=== PATIENT | female | born 1970 | race Caucasian/White ===

== ENCOUNTER 2024-08-02 17:45 | Inpatient (IN) | payer MEDICAID ==
[~2024-08-02] VITALS: Ht 163.8 cm; Wt 123.0 kg
[2024-08-02 19:25] LABS: BASOPHILS % (AUTO) 0.4 % (0-1); EOSINOPHILS # (AUTO) 0.2 X10'3 (0-0.9); EOSINOPHILS % (AUTO) 1.8 % (0-6); HEMATOCRIT 40.1 % (35.0-45.0); HEMOGLOBIN 14.1 g/dl (12.0-16.0); LYMPHOCYTES # (AUTO) 1.5 X10'3 (1.1-4.8); LYMPHOCYTES % (AUTO) 16.4 % (21-51); MEAN CORPUSCULAR HEMOGLOBIN 31.1 PG (27.0-31.0); MEAN CORPUSCULAR HGB CONC 35.1 g/dL (33.0-36.5); MEAN CORPUSCULAR VOLUME 88.7 FL (78-98); MEAN PLATELET VOLUME 9.5 FL (7.4-10.4); MONOCYTES % (AUTO) 11.1 % (2-12); NEUTROPHILS # (AUTO) 6.6 X10'3 (1.8-7.7); NEUTROPHILS % (AUTO) 70.3 % (42-75); PLATELET COUNT 294 X10'3 (140-440); RED BLOOD COUNT 4.52 X10'6 (4.20-5.60); RED CELL DISTRIBUTION WIDTH 14.1 % (11.5-14.5); WHITE BLOOD COUNT 9.3 X10'3 (4.5-11.0)
[2024-08-02 19:31] LABS: ALANINE AMINOTRANSFERASE 334 U/L (12-78); ALBUMIN 3.4 G/DL (3.4-5.0); ALBUMIN/GLOBULIN RATIO 0.9 (1.1-1.5); ALKALINE PHOSPHATASE 105 IU/L (46-116); ANION GAP 14 (8-16); ASPARTATE AMINO TRANSFERASE 94 U/L (10-37); BILIRUBIN,TOTAL 1.3 MG/DL (0.1-1.0); BLOOD UREA NITROGEN 27 MG/DL (7-18); BUN/CREATININE RATIO 14.1 (10.0-20.0); CALCIUM 8.3 MG/DL (8.5-10.1); CHLORIDE 90 MMOL/L (99-107); CREATININE 1.92 MG/DL (0.40-0.90); GLUCOSE 127 MG/DL (70-104); LIPASE 52 U/L (16-77); SODIUM 133 MMOL/L (135-145); TOTAL CARBON DIOXIDE 29.2 MMOL/L (24-32); TOTAL PROTEIN 7.3 G/DL (6.4-8.2); eCRCL 30 ML/MIN; eGFR 27 ML/MIN
[2024-08-02 19:55] LABS: POTASSIUM 2.5 MMOL/L (3.5-5.1)
[2024-08-02] MEDS ORDERED: magnesium Cl slow-release 64mg tablet PO PRN (19:55)
[2024-08-02] MEDS ORDERED: magnesium sulf-water 4G/100mL 100 ML IV PRN (19:55)
[2024-08-02] MEDS ORDERED: acetaminophen 325mg tablet PO PRN (19:55)
[2024-08-02] MEDS ORDERED: magnesium sulf-water 2g/50mL 50 ML IV PRN (19:55)
[2024-08-02] MEDS ORDERED: potassium Cl 20 mEq SR tablet PO PRN ×2 (19:55)
[2024-08-02] MEDS ORDERED: morphine 2 MG/ML inj. syringe IV PRN ×2 (19:55→23:55)
[2024-08-02] MEDS ORDERED: magnesium hydroxide 30ml (MOM) UD suspension PO PRN (19:55)
[2024-08-02] MEDS ORDERED: mag hydrox/Alum hydrox/simeth 30ml oral suspension PO PRN (19:55)
[2024-08-02] MEDS: K and/or MAG REPLACEMENT MC SCH (20:00)
[2024-08-02 20:24] LABS: MAGNESIUM 2.7 MG/DL (1.5-2.4)
[2024-08-02] MEDS: potassium Cl 40MEQ/1/2NS 520ml 520 ML IV PRN (20:29)
[2024-08-02] MEDS: normal saline 1000ml 1,000 ML IV SCH (20:37)
[2024-08-02] MEDS: ringers solution, lacted 1,000 ML IV ONE (20:55)
[2024-08-02] MEDS ORDERED: famotidine/PF 10 mg/ml inj IV ONE (23:55)
[2024-08-02] MEDS ORDERED: proCHLORperazine 10 MG/2 ml inj IV PRN (23:55)
[2024-08-02] MEDS ORDERED: hydrALAZINE 20mg/ml inj. IV PRN (23:55)
[2024-08-02] MEDS ORDERED: labetalol 20mg/4ml (5mg/ml) syringe IV PRN (23:55)
[2024-08-02] MEDS ORDERED: meperidine/PF 25mg/ml syringe IV PRN ×2 (23:55)
[2024-08-02] MEDS ORDERED: ondansetron/PF 4mg/2ml inj IV PRN (23:55)
[2024-08-03] VITALS (12 sets, daily range): BP systolic 110–179; BP diastolic 62–98; PULSE 74–89; RESP 13–19; TEMP 98.2–98.8; O2SAT 93–98
[2024-08-03] MEDS ORDERED: fentaNYL/PF 50MCG/1 ML 2ML syringe ONE ×2 (00:01→01:31)
[2024-08-03] MEDS ORDERED: midazolam 1 mg/ML 2ml injection ONE (00:02)
[2024-08-03] MEDS ORDERED: sevoflurane 250ml liquid IH ONE (00:08)
[2024-08-03] MEDS: BUPIVAcaine 2.5mg/ml inj 50ml vial (contains preservative) SQ ONE (00:57)
[2024-08-03] MEDS ORDERED: BUPIVAcaine 2.5mg/ml inj 50ml vial (contains preservative) ONE (01:10)
[2024-08-03] MEDS ORDERED: LIDOcaine 2% (20mg/ml) 5ml vial ONE (01:29)
[2024-08-03] MEDS ORDERED: neostigmine methylsulfate 1 MG/ML 10ml vial ONE (01:29)
[2024-08-03] MEDS ORDERED: ceFOXitin 1000 MG inj ONE ×2 (01:29)
[2024-08-03] MEDS ORDERED: propofol inj 20 ML IV ONE (01:29)
[2024-08-03] MEDS ORDERED: rocuronium 10mg/ml inj IV ONE (01:29)
[2024-08-03] MEDS ORDERED: ondansetron/PF 4mg/2ml inj ONE (01:31)
[2024-08-03] MEDS ORDERED: dexamethasone sod phosphate 4mg/ml inj. ONE (01:31)
[2024-08-03] MEDS ORDERED: sugammadex 200mg/2ml injection IV ONE (01:57)
[2024-08-03] MEDS: meperidine/PF 25mg/ml syringe IV PRN (02:07)
[2024-08-03] MEDS: acetaminophen 1,000mg/100ml IV 100 ML IV ONE (02:07)
[2024-08-03] MEDS: ondansetron/PF 4mg/2ml inj IV PRN (02:08)
[2024-08-03] MEDS: morphine 4 MG/ML inj SYRINge IV PRN (02:35)
[2024-08-03] MEDS ORDERED: SERT100T PO (04:59)
[2024-08-03 05:21] LABS: BASOPHILS % (AUTO) 0.5 % (0-1); EOSINOPHILS # (AUTO) 0.1 X10'3 (0-0.9); EOSINOPHILS % (AUTO) 0.7 % (0-6); HEMATOCRIT 35.7 % (35.0-45.0); HEMOGLOBIN 12.5 g/dl (12.0-16.0); LYMPHOCYTES # (AUTO) 0.7 X10'3 (1.1-4.8); LYMPHOCYTES % (AUTO) 8.2 % (21-51); MEAN CORPUSCULAR HEMOGLOBIN 31.2 PG (27.0-31.0); MEAN CORPUSCULAR HGB CONC 34.9 g/dL (33.0-36.5); MEAN CORPUSCULAR VOLUME 89.3 FL (78-98); MEAN PLATELET VOLUME 8.8 FL (7.4-10.4); MONOCYTES # (AUTO) 0.5 X10'3 (0-0.9); MONOCYTES % (AUTO) 5.9 % (2-12); NEUTROPHILS # (AUTO) 7.5 X10'3 (1.8-7.7); NEUTROPHILS % (AUTO) 84.7 % (42-75); PLATELET COUNT 228 X10'3 (140-440); RED CELL DISTRIBUTION WIDTH 14.1 % (11.5-14.5); WHITE BLOOD COUNT 8.8 X10'3 (4.5-11.0)
[2024-08-03 05:37] LABS: ALANINE AMINOTRANSFERASE 272 U/L (12-78); ALBUMIN 2.9 G/DL (3.4-5.0); ALBUMIN/GLOBULIN RATIO 0.9 (1.1-1.5); ALKALINE PHOSPHATASE 87 IU/L (46-116); ANION GAP 9 (8-16); ASPARTATE AMINO TRANSFERASE 78 U/L (10-37); BILIRUBIN,TOTAL 1.3 MG/DL (0.1-1.0); BLOOD UREA NITROGEN 24 MG/DL (7-18); CALCIUM 7.4 MG/DL (8.5-10.1); CHLORIDE 98 MMOL/L (99-107); CREATININE 1.71 MG/DL (0.40-0.90); GLUCOSE 149 MG/DL (70-104); POTASSIUM 3.6 MMOL/L (3.5-5.1); SODIUM 132 MMOL/L (135-145); TOTAL CARBON DIOXIDE 25.5 MMOL/L (24-32); TOTAL PROTEIN 6.1 G/DL (6.4-8.2); eCRCL 34 ML/MIN; eGFR 31 ML/MIN
[2024-08-03] MEDS: ringers solution, lacted 1,000 ML IV SCH (10:02)
[2024-08-03] MEDS: pantoprazole 40 MG vial IV SCH (13:36)
[2024-08-03] MEDS: morphine 2 MG/ML inj. syringe IV PRN (14:12)
[2024-08-03] MEDS: enoxaparin 40mg/0.4ml syringe SUBCUT SCH (20:53)
[2024-08-04] VITALS (7 sets, daily range): BP systolic 119–140; BP diastolic 60–78; PULSE 79–94; RESP 14–18; TEMP 97.3–98.8; O2SAT 80–100
[2024-08-04 05:42] LABS: BASOPHILS % (AUTO) 0.3 % (0-1); EOSINOPHILS # (AUTO) 0.1 X10'3 (0-0.9); EOSINOPHILS % (AUTO) 1.9 % (0-6); HEMATOCRIT 30.3 % (35.0-45.0); HEMOGLOBIN 10.5 g/dl (12.0-16.0); LYMPHOCYTES # (AUTO) 1.6 X10'3 (1.1-4.8); LYMPHOCYTES % (AUTO) 21.5 % (21-51); MEAN CORPUSCULAR HEMOGLOBIN 31.2 PG (27.0-31.0); MEAN CORPUSCULAR HGB CONC 34.7 g/dL (33.0-36.5); MEAN CORPUSCULAR VOLUME 89.9 FL (78-98); MEAN PLATELET VOLUME 9.1 FL (7.4-10.4); MONOCYTES # (AUTO) 0.8 X10'3 (0-0.9); MONOCYTES % (AUTO) 10.9 % (2-12); NEUTROPHILS # (AUTO) 4.9 X10'3 (1.8-7.7); NEUTROPHILS % (AUTO) 65.4 % (42-75); PLATELET COUNT 198 X10'3 (140-440); RED BLOOD COUNT 3.37 X10'6 (4.20-5.60); RED CELL DISTRIBUTION WIDTH 14.3 % (11.5-14.5); WHITE BLOOD COUNT 7.5 X10'3 (4.5-11.0)
[2024-08-04 06:02] LABS: ALANINE AMINOTRANSFERASE 186 U/L (12-78); ALBUMIN 2.7 G/DL (3.4-5.0); ALBUMIN/GLOBULIN RATIO 0.8 (1.1-1.5); ALKALINE PHOSPHATASE 73 IU/L (46-116); ANION GAP 10 (8-16); ASPARTATE AMINO TRANSFERASE 43 U/L (10-37); BILIRUBIN,TOTAL 0.8 MG/DL (0.1-1.0); BLOOD UREA NITROGEN 15 MG/DL (7-18); BUN/CREATININE RATIO 14.2 (10.0-20.0); CALCIUM 7.4 MG/DL (8.5-10.1); CHLORIDE 103 MMOL/L (99-107); CREATININE 1.06 MG/DL (0.40-0.90); GLUCOSE 103 MG/DL (70-104); POTASSIUM 3.1 MMOL/L (3.5-5.1); SODIUM 139 MMOL/L (135-145); TOTAL CARBON DIOXIDE 26.1 MMOL/L (24-32); TOTAL PROTEIN 5.9 G/DL (6.4-8.2); eCRCL 54 ML/MIN; eGFR 54 ML/MIN
[2024-08-05 06:12] LABS: BASOPHILS % (AUTO) 0.9 % (0-1); EOSINOPHILS # (AUTO) 0.2 X10'3 (0-0.9); HEMATOCRIT 29.8 % (35.0-45.0); HEMOGLOBIN 10.3 g/dl (12.0-16.0); LYMPHOCYTES # (AUTO) 1.6 X10'3 (1.1-4.8); LYMPHOCYTES % (AUTO) 32.1 % (21-51); MEAN CORPUSCULAR HGB CONC 34.4 g/dL (33.0-36.5); MEAN CORPUSCULAR VOLUME 90.1 FL (78-98); MEAN PLATELET VOLUME 9.4 FL (7.4-10.4); MONOCYTES # (AUTO) 0.5 X10'3 (0-0.9); MONOCYTES % (AUTO) 10.3 % (2-12); NEUTROPHILS # (AUTO) 2.6 X10'3 (1.8-7.7); NEUTROPHILS % (AUTO) 52.7 % (42-75); PLATELET COUNT 171 X10'3 (140-440); RED BLOOD COUNT 3.31 X10'6 (4.20-5.60); RED CELL DISTRIBUTION WIDTH 14.3 % (11.5-14.5)
[2024-08-05 06:35] VITALS: BP 131/77; PULSE 86; RESP 18; TEMP 98.6; O2SAT 95
[2024-08-05 06:37] LABS: ALANINE AMINOTRANSFERASE 132 U/L (12-78); ALBUMIN 2.5 G/DL (3.4-5.0); ALBUMIN/GLOBULIN RATIO 0.8 (1.1-1.5); ALKALINE PHOSPHATASE 68 IU/L (46-116); ANION GAP 11 (8-16); ASPARTATE AMINO TRANSFERASE 32 U/L (10-37); BILIRUBIN,TOTAL 0.7 MG/DL (0.1-1.0); BLOOD UREA NITROGEN 10 MG/DL (7-18); BUN/CREATININE RATIO 10.9 (10.0-20.0); CALCIUM 7.7 MG/DL (8.5-10.1); CHLORIDE 107 MMOL/L (99-107); CREATININE 0.92 MG/DL (0.40-0.90); GLUCOSE 76 MG/DL (70-104); POTASSIUM 3.2 MMOL/L (3.5-5.1); SODIUM 141 MMOL/L (135-145); TOTAL CARBON DIOXIDE 23.5 MMOL/L (24-32); TOTAL PROTEIN 5.7 G/DL (6.4-8.2); eCRCL 62 ML/MIN; eGFR 64 ML/MIN
[2024-08-05 08:00] VITALS: RESP 16
[2024-08-05 10:00] VITALS: BP 118/67; PULSE 80; RESP 17; TEMP 97.9; O2SAT 96
[2024-08-05 19:00] VITALS: BP 131/80; PULSE 89; RESP 20; TEMP 97.8; O2SAT 100
[2024-08-05 22:00] VITALS: BP 128/70; PULSE 97; RESP 16; TEMP 98.1; O2SAT 99
[2024-08-06 06:00] VITALS: BP 125/78; PULSE 84; RESP 18; TEMP 98.3; O2SAT 97
[2024-08-06 06:04] LABS: BASOPHILS % (AUTO) 0.6 % (0-1); EOSINOPHILS # (AUTO) 0.2 X10'3 (0-0.9); EOSINOPHILS % (AUTO) 4.3 % (0-6); HEMATOCRIT 29.7 % (35.0-45.0); HEMOGLOBIN 10.5 g/dl (12.0-16.0); LYMPHOCYTES # (AUTO) 1.6 X10'3 (1.1-4.8); LYMPHOCYTES % (AUTO) 36.7 % (21-51); MEAN CORPUSCULAR HEMOGLOBIN 31.5 PG (27.0-31.0); MEAN CORPUSCULAR HGB CONC 35.4 g/dL (33.0-36.5); MEAN CORPUSCULAR VOLUME 89.1 FL (78-98); MEAN PLATELET VOLUME 9.5 FL (7.4-10.4); MONOCYTES # (AUTO) 0.5 X10'3 (0-0.9); MONOCYTES % (AUTO) 11.6 % (2-12); NEUTROPHILS # (AUTO) 2.1 X10'3 (1.8-7.7); NEUTROPHILS % (AUTO) 46.8 % (42-75); PLATELET COUNT 190 X10'3 (140-440); RED BLOOD COUNT 3.34 X10'6 (4.20-5.60); RED CELL DISTRIBUTION WIDTH 14.1 % (11.5-14.5); WHITE BLOOD COUNT 4.5 X10'3 (4.5-11.0)
[2024-08-06 06:27] LABS: ALANINE AMINOTRANSFERASE 97 U/L (12-78); ALBUMIN 2.4 G/DL (3.4-5.0); ALBUMIN/GLOBULIN RATIO 0.7 (1.1-1.5); ALKALINE PHOSPHATASE 66 IU/L (46-116); ANION GAP 8 (8-16); ASPARTATE AMINO TRANSFERASE 22 U/L (10-37); BILIRUBIN,TOTAL 0.6 MG/DL (0.1-1.0); BLOOD UREA NITROGEN 5 MG/DL (7-18); BUN/CREATININE RATIO 5.5 (10.0-20.0); CALCIUM 7.8 MG/DL (8.5-10.1); CHLORIDE 108 MMOL/L (99-107); CREATININE 0.91 MG/DL (0.40-0.90); GLUCOSE 105 MG/DL (70-104); POTASSIUM 3.2 MMOL/L (3.5-5.1); SODIUM 140 MMOL/L (135-145); TOTAL CARBON DIOXIDE 24.3 MMOL/L (24-32); TOTAL PROTEIN 5.8 G/DL (6.4-8.2); eCRCL 63 ML/MIN; eGFR 65 ML/MIN
[2024-08-06] MEDS ORDERED: potassium Cl 20 mEq SR tablet PO PRN (08:10)
[2024-08-06] MEDS ORDERED: magnesium Cl slow-release 64mg tablet PO PRN (08:10)
[2024-08-06] MEDS ORDERED: magnesium sulf-water 2g/50mL 50 ML IV PRN (08:10)
[2024-08-06] MEDS ORDERED: magnesium sulf-water 4G/100mL 100 ML IV PRN (08:10)
[2024-08-06] MEDS ORDERED: potassium Cl 40MEQ/1/2NS 520ml 520 ML IV PRN (08:10)
[2024-08-06 08:21] VITALS: RESP 16
[2024-08-06 08:24] LABS: MAGNESIUM 2.1 MG/DL (1.5-2.4)
[2024-08-06] MEDS: potassium Cl 20 mEq SR tablet PO PRN (08:32)
[2024-08-06 10:00] VITALS: BP 114/73; PULSE 89; RESP 18; TEMP 97.4; O2SAT 94
[2024-08-06] MEDS: LIDOcaine 4% (40 mg/ml) topical solution 50ml TP ONE (11:30)
[2024-08-06 18:00] VITALS: BP 110/68; PULSE 86; RESP 18; TEMP 97.6; O2SAT 98
[2024-08-06 20:00] VITALS: RESP 16; O2SAT 98
[2024-08-06] MEDS: K and/or MAG REPLACEMENT MC SCH (20:00)
[2024-08-06 22:00] VITALS: BP 112/69; PULSE 78; RESP 18; TEMP 98.9; O2SAT 99
[2024-08-07 04:59] LABS: BASOPHILS % (AUTO) 0.6 % (0-1); EOSINOPHILS # (AUTO) 0.2 X10'3 (0-0.9); EOSINOPHILS % (AUTO) 4.4 % (0-6); HEMATOCRIT 29.9 % (35.0-45.0); HEMOGLOBIN 10.3 g/dl (12.0-16.0); LYMPHOCYTES % (AUTO) 40.4 % (21-51); MEAN CORPUSCULAR HEMOGLOBIN 31.3 PG (27.0-31.0); MEAN CORPUSCULAR HGB CONC 34.6 g/dL (33.0-36.5); MEAN CORPUSCULAR VOLUME 90.6 FL (78-98); MEAN PLATELET VOLUME 8.7 FL (7.4-10.4); MONOCYTES # (AUTO) 0.6 X10'3 (0-0.9); MONOCYTES % (AUTO) 11.3 % (2-12); NEUTROPHILS # (AUTO) 2.1 X10'3 (1.8-7.7); NEUTROPHILS % (AUTO) 43.3 % (42-75); PLATELET COUNT 209 X10'3 (140-440); RED CELL DISTRIBUTION WIDTH 14.3 % (11.5-14.5); WHITE BLOOD COUNT 4.9 X10'3 (4.5-11.0)
[2024-08-07 05:13] LABS: ALANINE AMINOTRANSFERASE 75 U/L (12-78); ALBUMIN 2.4 G/DL (3.4-5.0); ALBUMIN/GLOBULIN RATIO 0.7 (1.1-1.5); ALKALINE PHOSPHATASE 80 IU/L (46-116); ANION GAP 7 (8-16); ASPARTATE AMINO TRANSFERASE 23 U/L (10-37); BILIRUBIN,TOTAL 0.6 MG/DL (0.1-1.0); BLOOD UREA NITROGEN 6 MG/DL (7-18); BUN/CREATININE RATIO 5.7 (10.0-20.0); CALCIUM 7.8 MG/DL (8.5-10.1); CHLORIDE 109 MMOL/L (99-107); CREATININE 1.05 MG/DL (0.40-0.90); GLUCOSE 127 MG/DL (70-104); SODIUM 140 MMOL/L (135-145); TOTAL CARBON DIOXIDE 23.8 MMOL/L (24-32); TOTAL PROTEIN 5.8 G/DL (6.4-8.2); eCRCL 55 ML/MIN; eGFR 55 ML/MIN
[2024-08-07 06:00] VITALS: BP 102/69; PULSE 86; RESP 19; TEMP 98.7; O2SAT 98
[2024-08-07 08:00] VITALS: RESP 19; O2SAT 98
[2024-08-07] MEDS: ringers solution, lacted 1,000 ML IV SCH (09:25)
[2024-08-07] MEDS: CefTRIAXone/D5W-Rocephin 1gm 50 ML IV SCH (09:50)
[2024-08-07 10:19] VITALS: BP 108/64; PULSE 84; RESP 20; TEMP 97.8; O2SAT 99
[2024-08-07] MEDS ORDERED: AMOX-419 PO (10:28)
== END 2024-08-07 14:05 | DRG 227 ==
LOC: ER 17:46 → UNDOADMIN 19:53 → ED HOLD 19:53 → EDBEDREQ 21:36 → SUR 3N 08-03 02:45 → ED HOLD 08-03 02:45
PROVIDERS: ADMIT Surgery Surgical Critical Care; ATTEND Family Medicine
PROC: 0WQF0ZZ Repair Abdominal Wall, Open Approach (ICD-10-PCS; principal; 2024-08-02)
PROC: 0WJF4ZZ Inspection of Abdominal Wall, Percutaneous Endoscopic Approach (ICD-10-PCS; 2024-08-02)
PROC: 0D9670Z Drainage of Stomach with Drainage Device, Via Natural or Artificial Opening (ICD-10-PCS; 2024-08-02)
DX: K43.6 Other and unspecified ventral hernia with obstruction, without gangrene (principal); N17.0 Acute kidney failure with tubular necrosis; G47.33 Obstructive sleep apnea (adult) (pediatric); K76.0 Fatty (change of) liver, not elsewhere classified; E87.1 Hypo-osmolality and hyponatremia; E66.01 Morbid (severe) obesity due to excess calories; F32.A Depression, unspecified; K21.9 Gastro-esophageal reflux disease without esophagitis; E86.0 Dehydration; J45.909 Unspecified asthma, uncomplicated; E87.6 Hypokalemia; Z90.49 Acquired absence of other specified parts of digestive tract; Z91.013 Allergy to seafood; Z68.42 Body mass index [BMI] 45.0-49.9, adult; Z53.31 Laparoscopic surgical procedure converted to open procedure
CPT/HCPCS: 36415; 80053; 83690; 83735; 84100; 85025; 87040; 87081; 93005; 99291; A4215; A4314; A4615; A4618; A6449; A7000; G0378; J0131; J0694; J0696; J1100; J1650; J2003; J2175; J2250; J2270; J2405; J2470; J2704; J2710; J3010; J3480; J3490; J7030; J7120